=== PATIENT | male | born 1980 | race Caucasian/White ===

== ENCOUNTER 2022-04-22 16:59 | Emergency (ER) | payer OTHER, SELFPAY ==
[2022-04-22 17:11] VITALS: BP 161/115; PULSE 84; RESP 18; TEMP 36.6; O2SAT 96; BMI 52.6
--- NOTE | 2022-04-22 18:03 | ED_ITS ---
HPI - Abdominal Pain General Date Seen: 04/22/22 Chief Complaint: Groin Pain Stated Complaint: Groin Injury Time Seen by Provider: 04/22/22 17:37 Source: patient Mode of arrival: ambulatory Limitations: no limitations History of Present Illness HPI narrative: Patient is a 42-year-old gentleman who was initially seen in urgent care and sent to the hospital for further delineation, he has noted today, after some heavy lifting he has pain in his right groin, with radiation down to his testicular area, he can feel no specific bulge there, but says whenever he lifts coughs or moves around he can feel the discomfort he did have a before, and this occurred at work. Denies any numbness tingling, nausea vomiting, passing stools and gas normally, little bit of dysuria frequency. MD elicited complaint: abdominal pain Pertinent past history: none Onset (ago): hour(s) Pain Consistency: constant Location: groin Severity: moderate Radiation: none Migration to: no migration Associated symptoms: denies other symptoms Related Data Home Medications Medication Instructions Recorded Confirmed amlodipine 5 mg tablet 5 mg PO QDAY 04/22/22 04/22/22 cholecalciferol (vitamin D3) 25 25 mcg PO QDAY 04/22/22 04/22/22 mcg (1,000 unit) capsule losartan 50 mg tablet 50 mg PO QDAY 04/22/22 04/22/22 metformin 500 mg tablet,extended ea PO 04/22/22 04/22/22 release 24 hr torsemide 10 mg tablet 10 mg PO QDAY 04/22/22 04/22/22 Allergies Allergy/AdvReac Type Severity Reaction Status Date / Time lisinopril Allergy Intermediate Cough Verified 04/22/22 12:43 cephalexin [From Keflex] Allergy Mild Rash Verified 04/22/22 12:43 Review of Systems Status of ROS Reports: 6 or more systems reviewed and unremarkable except as noted in History and below PFSH PFS Social History Smoking Status: Unknown if ever smoked Do you use any of these nicotine containing products: None How often do you have a drink containing alcohol: never How often do you have six or more drinks on one occasion: Never AUDIT-C Alcohol total score: 0 Non-prescribed substance use: denies use Exam Narrative: Exam Narrative: Patient is seen in room 3 he is in no apparent distress he is walking around, a large gentleman with a weight of a box smelly 400 lb, his right groin has an easily reducible inguinal hernia, with radiation are of pulse to his right upper pubic area, left side appears normal, no evidence of significant redness of his pannus, is abdomen is otherwise soft there is no guarding no organomegaly, his abdomen is very large, testicles both descended and normal, no significant cellulitic process is noted. Const: Vital Signs, click to edit/add: Vital Signs - 24 hr 04/22/22 17:11 Temperature 97.9 F Pulse Rate [Pulse Oximeter] 84 Respiratory Rate 18 Blood Pressure [Ri ght Upper Arm] 161/115 H Pulse Oximetry 96 Oxygen Delivery Me thod Room Air Documenting provider has reviewed patient's vital signs: yes Course Course Hospital Course: I discussed with the patient that I think this is a hernia, but does need to be acutely dealt with I would suggest follow-up with surgery, and they can discuss with him, could go through his primary care physician also. We will rule out the a bladder infection with a UA but I do not think he needs to stay around for that Vital Signs Vital signs: Initial Vital Signs Temperature 97.9 F 04/22/22 17:11 Temperature Source Temporal Artery Scan 04/22/22 17:11 Pulse Rate 84 04/22/22 17:11 Respiratory Rate 18 04/22/22 17:11 Blood Pressure 161/115 H 04/22/22 17:11 Blood Pressure Mean 130 04/22/22 17:11 Blood Pressure Position Sitting 04/22/22 17:11 Pulse Oximetry 96 04/22/22 17:11 Oxygen Delivery Method 04/22/22 17:11 Vital Signs Temperature 97.9 F 04/22/22 17:11 Pulse Rate 84 04/22/22 17:11 Respiratory Rate 18 04/22/22 17:11 Blood Pressure 161/115 H 04/22/22 17:11 Pulse Oximetry 96 04/22/22 17:11 Oxygen Delivery Method 04/22/22 17:11 Temperature 97.9 F 04/22/22 17:11 Pulse Rate 84 04/22/22 17:11 Respiratory Rate 18 04/22/22 17:11 Blood Pressure 161/115 H 04/22/22 17:11 Pulse Oximetry 96 04/22/22 17:11 Oxygen Delivery Method 04/22/22 17:11 MDM - Abdominal Pain MDM Narrative Medical decision making narrative: During this evaluation of this patient I considered multiple differential diagnosis is which included the life-threatening such as appendicitis, aortic aneurysm, mesenteric ischemia, bowel perforation, volvulus, and bowel obstruction. Other differential diagnosis is include but are not limited to cholecystitis, pancreatitis, hepatitis, gastritis, GERD, diverticulitis, peptic ulcer disease, pyelonephritis/UTI, renal colic/stone, testicular torsion as well as other acute scrotal processes, inflammatory bowel disease, as well as other etiologies Medical Records Attestation: I reviewed the patient's medical records. Lab Data Attestation: I reviewed the patient's lab results. Labs: Lab Results 04/22/22 Range/Units 18:33 Urine Color Yellow (Yellow) Urine Appearance Clear (Clear) Urine pH 6.0 (5.0-8.5) Ur Specific [place] 1.025 (1.000-1.030) Urine Protein 1+ A (Negative) Urine Glucose (UA) Negative (Negative) Urine Ketones Negative (Negative) Urine Blood Trace-intact A (Negative) Urine Nitrite Negative (Negative) Urine Bilirubin Negative (Negative) Urine Urobilinogen 1.0 (0.2-1.0) Ur Leukocyte Esterase Negative (Negative) Urine RBC 2-5 A (0-2) Urine WBC 2-5 (0-5) Ur Squamous Epith Cells Moderate A (None-Few) Urine Bacteria None (None) Discharge Plan Discharge Clinical Impression: Inguinal hernia of right side without obstruction or gangrene Patient Disposition: Home, Self-Care Condition: Stable Instructions: Laparoscopic Herniorrhaphy (DC), Inguinal Hernia (ED), Inguinal Hernia Repair (DC) Additional Instructions: I believe this is an ongoing hernia, there is no evidence of it getting stuck, if it does get stuck we call that incarceration in you need to come back, you will know with markedly increased pain, nausea vomiting or other issues. Recommend Tylenol and or ibuprofen, and follow-up with surgery, for improvement. I would suggest no heavy lifting greater than 20 lb note written for work. I will call you if the urine is positive in we put her on some antibiotics. Prescriptions: No Action metformin 500 mg tablet extended release 24 hr PO Label Comments: TAKE 2 TABLETS (1,000 MG) BY MOUTH ONCE DAILY WITH EVENING MEAL. amlodipine 5 mg tablet 5 mg PO QDAY Label Comments: TAKE 1 TABLET (5 MG) BY MOUTH ONCE DAILY. torsemide 10 mg tablet 10 mg PO QDAY Label Comments: TAKE 1 TABLET (10 MG) BY MOUTH ONCE DAILY. losartan 50 mg tablet 50 mg PO QDAY Label Comments: TAKE 1 TABLET (50 MG) BY MOUTH ONCE DAILY. cholecalciferol (vitamin D3) 25 mcg (1,000 unit) capsule 25 mcg PO QDAY Follow Up/Referrals: Roxana Espino MD [Staff Physician] - Timo Bañuelos MD [Staff Physician] - Cliff Werner MD [Primary Care Provider] - Stand Alone Forms: [employer] Info Instructions
[2022-04-22 18:39] LABS: Appearance Urine Clear (Clear); Bilirubin Urine Negative (Negative); Blood Urine Trace-intact (Negative); Color Urine Yellow (Yellow); Glucose Urine Negative (Negative); Ketones Urine Negative (Negative); Leukocyte Esterase Urine Negative (Negative); Nitrite Urine Negative (Negative); Protein Urine 1+ (Negative); Specific Gravity Urine 1.025 (1.000-1.030)
[2022-04-22 18:59] LABS: Squamous Epithelial Cell Urine Moderate (None-Few)
== END 2022-04-22 18:50 | disposition home or self-care (01) ==
PROVIDERS: Emergency Provider Family Medicine; PCP Family Medicine
DX: K40.90 Unilateral inguinal hernia, without obstruction or gangrene, not specified as recurrent (principal)
CPT/HCPCS: 81001; 99283; 99284

== ENCOUNTER 2022-05-07 07:04 | Outpatient (CLI) | payer OTHER, SELFPAY ==
[2022-05-07 07:43] LABS: Creatinine* 0.9 mg/dL (0.5-1.5); Estimated Glomerular Filt Rate 109 ml/min
--- NOTE | 2022-05-07 08:00 | CRLHL7_ITS ---
For Patients: As a result of the Century Cures Act, medical imaging exams and procedure reports are released immediately into your electronic medical record. You may view this report before your referring provider. If you have questions, please contact your health care provider. Indication: PAIN RIGHT INGUINAL AREA POSSIBLE HERNIA Technique: Postcontrast CT abdomen and pelvis. 149 cc Isovue 370 intravenous contrast. Please note that all CT scans at this facility use dose modulation, iterative reconstruction, and/or weight-based dosing when appropriate to reduce radiation dose to as low as reasonably achievable. Comparison: None Findings: Lung bases are clear. There is mild hepatic steatosis. Gallbladder normal. No calcified gallstones. Spleen is normal. Normal pancreas. Adrenal glands normal. Normal kidneys. No intra-abdominal or intrapelvic adenopathy. Normal bladder. No pelvic soft tissue mass. No bowel obstruction or free air. No free fluid or abscess. The appendix is normal. No evidence of abdominal wall hernia. Bone islands within the left medial pubic bone. Early degenerative changes at the right hip and L5-S1. Impression: No evidence of abdominal wall hernia. Mild hepatic steatosis. 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 Normal sacroiliac joints. Degenerative disc disease L5-S1. Please note that all CT scans at this facility use dose modulation, iterative reconstruction, and/or weight-based dosing when appropriate to reduce radiation dose to as low as reasonably achievable. Dictated by Willy Brar MD @ 05/07/2022 9:33:32 AM (Electronically Signed)
== END 2022-05-07 07:05 | disposition home or self-care (01) ==
PROVIDERS: PCP Family Medicine; Visit Provider Surgery
DX: K40.90 Unilateral inguinal hernia, without obstruction or gangrene, not specified as recurrent (principal); K76.0 Fatty (change of) liver, not elsewhere classified; M47.817 Spondylosis without myelopathy or radiculopathy, lumbosacral region
CPT/HCPCS: 36415; 74177; 82565; Q9967